=== PATIENT | male | born 1965 | race Caucasian/White ===

== ENCOUNTER 2016-06-15 16:30 | Emergency (ER) | payer BC ==
[~2016-06-15] VITALS: Ht 167.6 cm; Wt 51.7 kg
[~2016-06-15 16:30] MED LIST: ASPI81TA28 PO; INSPMPNVLG SQ; ISOT1CAP PO; LSN5 PO
[2016-06-15 16:40] VITALS: TEMP 37.3; Ht 167.6 cm; Wt 51.7 kg
[2016-06-15] MEDS ORDERED: IBUPROFEN 600 MG TAB PO STA (16:58)
--- NOTE | 2016-06-15 17:23 | DIAGNOSTIC IMAGING REPORT ---
RIGHT WRIST W/NAVICULAR MIN 3 VIEWS CLINICAL HISTORY: Right wrist pain. Lateral aspect. No Trauma Right trauma. Pain. COMPARISON: None. DISCUSSION: The bones and joint spaces appear intact. There is no evidence of fracture, dislocation or bony disease. There is no evidence for soft tissue swelling. IMPRESSION: Negative study. Electronically signed by: Juan Manuel Thomas M.D. 06/15/2016 5:22 PM Dictated Date/Time: 06/15/2016 5:21 PM
--- NOTE | 2016-06-15 18:06 | EMERGENCY ROOM VISIT NOTE ---
History First contact with patient: 16:49 Chief Complaint: WRIST PAIN Stated Complaint: RIGHT HAND/ WRIST PAIN History of Present Illness The patient is a 51 year old male who presents to the Emergency Room via private vehicle with complaints of "right hand/wrist pain". The patient states that one week ago he developed pain with gripping was localized to the wrist. He states that when he moves his right wrist experiences pain. He also points to the base of the right thumb as a location of pain. He notes that after abrading the snowblower, and the mower the pain is worse. He is right-handed. He denies any injury or trauma to the region. He denies any fevers or chills. Review of Systems A complete 6-point Review of Systems was discussed with the patient, with pertinent positives and negatives listed in the History of Present Illness. All remaining Review of Systems questions can be considered negative unless otherwise specified. Past Medical/Surgical History Medical Problems: (1) Diab W Oth Spec Manifest, Type I [Juvenile Type], Not Uncntr Family History No pertinent family history Social History Smoking Status: Current Every Day Smoker Alcohol Use: occasionally Drug Use: none Marital Status: Housing Status: lives with significant other Occupation Status: employed Current/Historical Medications Scheduled Aspirin (Aspirin Ec), 81 MG PO DAILY Insulin Aspart (novoLOG INSULIN PUMP ), 1 DOSE SQ UD Lisinopril (Lisinopril), 5 MG PO DAILY Allergies Coded Allergies: SHELLFISH (Verified Adverse Reaction, Intermediate, "VIOLENT VOMITING", ) Physical Exam Vital Signs Date Time Temp Pulse Resp B/P Pulse Ox O2 Delivery O2 Flow Rate FiO2 06/15/16 18:23 83 16 134/86 96 06/15/16 16:40 37.3 97 16 149/70 96 Room Air Physical Exam VITAL SIGNS - Vital signs and nursing notes were reviewed. Patient is afebrile , pressure 149/70, non-tachycardic and saturating well on room air at 96%. GENERAL -51-year-old male appearing his stated age who is in no acute distress. Communicates well with provider and answers questions appropriately. SKIN - Without rashes. No petechial rashes or signs of erythema of the right wrist. No edema of the right wrist. EXTREMITIES - No clubbing or peripheral cyanosis. No pretibial edema present. Positive Salud's test of the right upper extremity. This is consistent with de Quervain's tenosynovitis. No navicular tenderness or anatomical snuffbox tenderness. There is full range of motion of all digits and joints of the right upper extremity. Minimal tenderness to palpation. Pain worse with flexion of the right thumb. +5/5 strength noted in UE/LE bilaterally. He is neurovascularly intact in the right upper extremity. Medical Decision & Procedures ER Provider Diagnostic Interpretation: RIGHT WRIST W/NAVICULAR MIN 3 VIEWS CLINICAL HISTORY: Right wrist pain. Lateral aspect. No Trauma Right trauma. Pain. COMPARISON: None. DISCUSSION: The bones and joint spaces appear intact. There is no evidence of fracture, dislocation or bony disease. There is no evidence for soft tissue swelling. IMPRESSION: Negative study. Electronically signed by: Juan Manuel Thomas M.D. 06/15/2016 5:22 PM Dictated Date/Time: 06/15/2016 5:21 PM Medications Administered Medications (Trade) Dose Ordered Sig/Brando Route Start Time Stop Time Status Last Admin Dose Admin Ibuprofen (Motrin Tab) 600 mg NOW STAT PO 06/15/16 16:58 06/15/16 16:59 DC 06/15/16 17:07 600 MG Medical Decision Patient was seen and evaluated as above. After obtaining a thorough history and physical examination radiograph was obtained of the right wrist to rule out underlying fracture. This was negative. Patient was given 600 mg of ibuprofen for his pain and inflammation. Given the positive Salud test and subjective and objective examination consistent with that of de Quervain's tenosynovitis I do believe that a diagnosis of this is appropriate. There was no underlying evidence of cellulitis, infection or fracture. No evidence of carpal tunnel. Patient was educated upon management and was fitted with a thumb spica splint. He was instructed to take ibuprofen for the next few days to be careful with the aspirin. He is provided the number for orthopedic group and was instructed to follow-up he was educated upon worrisome symptoms which to return, had questions whether discharge, and was discharged home. In the evaluation and treatment of this patient, the following differential diagnoses were considered: Wrist Sprain, Wrist Fracture, Wrist Dislocation, de Quervains tenosynovitis, Scapholunate Dissociation, Carpal Fracture, Metacarpal Fracture, Radial Styloid Process Fracture, Ulnar Styloid Process Fracture, or Carpal Tunnel Syndrome. Impression Primary Impression: Wrist pain, right Additional Impression: De Quervain's tenosynovitis, right Departure Information Dispostion Home / Self-Care Condition GOOD Referrals No Doctor, Assigned (PCP) Efraín Valdez D.O. Patient Instructions [facility] Additional Instructions You have been treated in the Emergency Department for Wrist Pain. For pain control, you can use the following [id number]-[id number] medicines (if >12 yo): - Regular strength (325mg/tab) Tylenol (acetaminophen) 2 tabs every 4-6 hours as needed. Do not exceed 12 tablets in a 24 hour period. Avoid taking more than 4 grams (4000 mg) of Tylenol per day. This includes any other sources of acetaminophen you may take on a regular basis. - Regular strength (200 mg/tab) Advil (ibuprofen) 1-2 tabs every 4-6 hours as needed. Do not exceed a dose of 3200 mg per day. PLEASE USE CAUTION WITH ASPIRIN. If this is a recent injury (<24 hrs), ice can be applied to the area of pain for the first 3 days to help decrease pain and inflammation. You have been provided the number for an Orthopaedic Surgeon. You should call this number as soon as possible to establish a follow-up visit from today's Emergency Department visit. Keep the brace/splint in place until evaluated by Orthopedics. Return to the Emergency Department if your current symptoms worsen despite treatment course outlined above, or if you develop any of the following symptoms : intractable pain despite aforementioned treatment course or new onset of numbness or tingling of the fingers. Please return to the emergency department with any new/concerning symptoms. Problem Qualifiers
[2016-06-15 18:23] VITALS: BP 134/86; PULSE 83; O2SAT 96
== END 2016-06-15 18:24 | disposition home or self-care (01) ==
LOC: C.EDB 16:31 → C.EDD 18:24
DX: M65.4 Radial styloid tenosynovitis [de Quervain] (principal); E11.9 Type 2 diabetes mellitus without complications; F17.210 Nicotine dependence, cigarettes, uncomplicated; Z79.82 Long term (current) use of aspirin; Z79.4 Long term (current) use of insulin; Z79.899 Other long term (current) drug therapy

== ENCOUNTER 2017-10-30 08:03 | Emergency (ER) | payer BC, OTHER ==
[~2017-10-30] VITALS: Ht 167.6 cm; Wt 64.0 kg
[~2017-10-30 08:03] MED LIST changes: -ISOT1CAP PO; +LISI-730 PO; -LSN5 PO
[2017-10-30 08:08] VITALS: TEMP 37.1; Ht 167.6 cm; Wt 64.0 kg
[2017-10-30] MEDS ORDERED: LIDOCAINE 1% BUFFERED INJ 20 ML VIAL INFIL ONE (08:30)
[2017-10-30] MEDS ORDERED: ATOR-22 PO (08:40)
[2017-10-30] MEDS ORDERED: CEPH-570 PO (09:35)
[2017-10-30 09:54] VITALS: BP 135/64; PULSE 92; O2SAT 96
--- NOTE | 2017-10-31 07:53 | EMERGENCY ROOM VISIT NOTE ---
ED Visit Note First contact with patient: 08:18 CHIEF COMPLAINT: Rectal pain. HISTORY OF PRESENT ILLNESS: Mr. Ruiz is an 52-year-old white male who ambulates into the ED complaining of a rectal abscess. Historically patient reports he has a history of a gluteal sebaceous cyst that occasionally becomes infected. He reports he has been seen by dermatology 3 times for drainage of the associated abscess. He reports he was told that if he had another abscess in that area he would have to have the sebaceous cyst removed. The patient noticed a hard tender area in 3 days ago. He reports this was similar to his previous abscesses. He contacted dermatology and appointment was made for Monday, 2 days from now, for drainage. He reports over the weekend he has been having increasing discomfort and has noted that the area has becoming more larger and more tender. He reports after waking this morning his pain became severe and could not wait for his Monday appointment so he came into the emergency department. Currently he is complaining of pain over the left buttocks. This is in the midportion of the buttocks and right outside the gluteal cleft. He describes his pain as a severe sharp pain with pressure. He rates his discomfort 9/10. His pain is nonradiating. His pain worsens with ambulation, sitting on his buttocks and palpation. He has not identified any alleviating factors related to the pain. He has not taken any medication for pain prior to arrival at the hospital. He denies any associated symptoms including fevers, chills, sweats, other skin eruptions, other skin color changes, abdominal pain, nausea, vomiting , rectal bleeding, black/tarry stools, painful bowel movements, lower extremity weakness/numbness/tingling. Additionally he reports cultures have been done on previous his abscesses and grew out staph aureus without methyl resistance. REVIEW OF SYSTEMS: As noted above in History of Present Illness; 8 body systems reviewed with the patient and found to be negative unless noted above otherwise. PAST MEDICAL HISTORY: As noted above and hypertension, dyslipidemia and diabetes. CURRENT MEDICATION: Lisinopril, aspirin, NovoLog, Lipitor. ALLERGIES TO MEDICATION: Patient denies. SOCIAL HISTORY: Patient is currently employed; he feels safe in his home environment; he admits to tobacco use. PHYSICAL EXAM: Vital Signs: Date Time Temp Pulse Resp B/P (MAP) Pulse Ox O2 Delivery O2 Flow Rate FiO2 10/30/17 09:54 92 18 135/64 96 10/30/17 08:08 37.1 123 18 154/73 98 Room Air General: 52 year-old male in moderate distress due to pain, nontoxic appearing, afebrile and hemodynamically stable. Neurological: Awake, alert and oriented to person, place and time. Answering questions appropriately and following commands. Skin: Warm, dry and pink. Left Buttocks: There is an indurated area measuring approximately 5 cm. The central portion of the indurated is erythematous. There is a visible pustule on top of this area measuring approximately 1 cm. There is no drainage from the wound. There is no lymphangitis. Thorax: Lungs sounds are clear to auscultation and equal bilaterally with symmetrical chest wall movement. Abdomen: Flat, soft and nontender. Positive bowel sounds in all quadrants. No guarding or rigidity. Rectal: The medial aspect of patient's abscess was palpated and there was no rectal tenderness, drainage or erythema. ED COURSE: Patient is assessed as noted above. Patient's medication list was reviewed. Incision and Drainage: Verbal consent was obtained after the risks and benefits were explained. The skin was prepped with betadine and a sterile field set. The area surrounding the abscess was anesthetized with 6.5 ml of 1% buffered lidocaine. The abscess cavity was incised with a scalpel. Approximately 6 mL of purulent material was drained from the abscess and more was expressed. Aerobic cultures were obtained and are currently pending. The abscess cavity was sharply dissected with iris scissors to break up loculations and a small amount of additional purulent drainage was expressed. Copious irrigation was performed using sterile saline. Hemostasis was achieved. Iodoform gauze packing was inserted into the abscess. A sterile dressing was applied. No complications and the patient tolerated the procedure well. Patient was educated about his condition and instructed on his treatment plan; he verbalized understanding and agreement with this plan. CLINICAL IMPRESSION: Abscess of the left buttocks DISPOSITION: Patient discharged to home in stable condition; prior to departure he was reassessed and subjectively reported he was feeling much better and rated his discomfort 3/10. PLAN: Patient was encouraged alternate ibuprofen and acetaminophen as needed for pain. Patient was encouraged to buy a donut pillow and we describe issues. Patient was prescribed Keflex 500 mg 4 times a day for 7 days. Patient was encouraged to keep his upcoming appointment with dermatology on Monday for recheck, culture results and packing removal. Patient was encouraged return the ED for worsening/uncontrolled pain, signs of infection, or any new/concerning symptoms.
--- NOTE | 2017-11-02 15:59 | Pharmacy Progress Note ---
ED Pharmacist Culture FollowUp Date of Service: Nov 02, 2017. Called patient regarding wound culture, growing Staphylococcus lugdunensis and discussed new prescription for bactrim and discontinuing the keflex he was started on. Patient had no further questions Prescription for Bactrim DS BID x 7 days called to [facility] at the patient's request. Case discussed with Parag Aleman PA-C, who is the prescribing provider.
== END 2017-10-30 09:55 | disposition home or self-care (01) ==
LOC: C.EDB 08:04
DX: L02.31 Cutaneous abscess of buttock (principal); I10 Essential (primary) hypertension; E78.5 Hyperlipidemia, unspecified; E11.9 Type 2 diabetes mellitus without complications; Z79.4 Long term (current) use of insulin; Z79.82 Long term (current) use of aspirin